=== PATIENT | male | born 1995 | race Caucasian/White ===

== ENCOUNTER 2021-06-13 09:43 | Emergency (ER) | payer SELFPAY ==
[2021-06-13 10:30] LABS: ANION GAP 11.7 meq/L (7-15); CHLORIDE,CL 103 mmol/L (98-107); SODIUM,NA 136 mmol/L (136-145)
[2021-06-13] MEDS ORDERED: Dexamethasone 10 MG/ML SDV IVPUSH ONE (11:18)
[2021-06-13] MEDS ORDERED: Sodium Chloride 0.9% 10 ML Syringe FLUSH PRN (11:41)
[2021-06-13] MEDS ORDERED: Sodium Chloride 0.9% 10 ML Syringe FLUSH SCH (16:00)
== END 2021-06-13 12:05 | disposition home or self-care (01) ==
LOC: LL.ED 09:43
DX: R06.02 Shortness of breath (principal); U07.1 COVID-19; E66.9 Obesity, unspecified; Z68.36 Body mass index [BMI] 36.0-36.9, adult; Z87.891 Personal history of nicotine dependence
CPT/HCPCS: 36415; 71046; 80053; 83735; 85025; 85379; 96374; 99285; J1100